=== PATIENT | female | born 1965 | race Caucasian/White ===

== ENCOUNTER 2016-04-21 21:34 | Emergency (ER) | payer MEDICARE | END 2016-04-21 21:45 | disposition home or self-care (01) | LOC: ER 21:34 | DX: H66.002 Acute suppurative otitis media without spontaneous rupture of ear drum, left ear (principal); H92.03 Otalgia, bilateral; F17.210 Nicotine dependence, cigarettes, uncomplicated; Z88.8 Allergy status to other drugs, medicaments and biological substances; Z79.899 Other long term (current) drug therapy | CPT/HCPCS: 99282 ==